=== PATIENT | female | born 1955 | race Caucasian/White ===

== ENCOUNTER 2017-01-11 18:51 | Emergency (ER) | payer BC, OTHER ==
[~2017-01-11] VITALS: Ht 160 cm; Wt 90.1 kg
[~2017-01-11 18:51] MED LIST: ASPI325T45; CITA20TA9 PO; CYAN100020 SL
[2017-01-11 18:56] VITALS: TEMP 36.8; Ht 160 cm; Wt 90.1 kg
[2017-01-11] MEDS ORDERED: SODIUM CHLORIDE 0.9% 1000ML 1,000 ML IV STA (20:16)
[2017-01-11] MEDS ORDERED: ONDANSETRON INJ 2 MG/ML 2 ML VIAL IV STA (20:16)
[2017-01-11 20:25] LABS: BASO % 0.4 %; BASO ABS # 0.03 K/uL (0-0.2); COMPLETE YES; EOS % 2.3 %; HEMATOCRIT 39.2 % (37-47); IG% 0.4 %; LYMPH % 41.9 %; LYMPH ABS # 3.32 K/uL (1.2-3.4); MEAN CELL VOLUME 90.3 fL (80-100); MEAN CORPUSCULAR HEMOGLOBIN 31.3 pg (25-34); MEAN CORPUSCULAR HGB CONC 34.7 g/dl (32-36); MEAN PLATELET VOLUME 10.4 fL (7.4-10.4); MONO % 7.4 %; NEUT % 47.6 %; PLATELET COUNT 253 K/uL (130-400); RED BLOOD COUNT 4.34 M/uL (4.2-5.4); WHITE BLOOD COUNT 7.92 K/uL (4.8-10.8)
[2017-01-11] MEDS ORDERED: NITROGLYCERIN 0.4 MG SL PER TAB CHARGE SL PRN (20:30)
--- NOTE | 2017-01-11 20:39 | DIAGNOSTIC IMAGING REPORT ---
CHEST ONE VIEW PORTABLE CLINICAL HISTORY: Chest pain. COMPARISON STUDY: Chest radiograph February 06, 2013 FINDINGS: Lung volumes are normal. Lungs are clear. There is no pneumothorax or pleural effusion. Cardiac size is normal. Mediastinal contours are normal. There is no evidence of pulmonary edema. IMPRESSION: No acute cardiopulmonary findings. Electronically signed by: Dex Hightower M.D. 01/11/2017 8:38 PM Dictated Date/Time: 01/11/2017 8:38 PM
[2017-01-11 20:42] LABS: ALT/SGPT 45 U/L (12-78); BLOOD UREA NITROGEN 18 mg/dl (7-18); BUN/CREATININE RATIO 18.6 (10-20); CALCIUM 9.4 mg/dl (8.5-10.1); CARBON DIOXIDE 29 mmol/L (21-32); CHLORIDE 104 mmol/L (98-107); CREATININE 0.99 mg/dl (0.60-1.20); GLUCOSE 115 mg/dl (70-99); SODIUM 140 mmol/L (136-145)
[2017-01-11 20:45] LABS: ALKALINE PHOSPHATASE 77 U/L (45-117); AST/SGOT 25 U/L (15-37)
[2017-01-11] MEDS ORDERED: IBUP-1050 PO (20:58)
[2017-01-11 22:00] VITALS: BP 128/71; PULSE 60; O2SAT 93
--- NOTE | 2017-01-12 23:51 | EMERGENCY ROOM VISIT NOTE ---
ED Visit Note First contact with patient: 20:07 Chief Complaint: Chest pain. History of Present Illness: Ms. Morris is a 61 year-old white female who ambulates into the ED accompanied by her complaining of chest pain. Historically patient reports she has no personal history of heart disease or any risk factors. She does report her father had heart disease. Patient reports gradual onset of her symptoms that started 5 days ago. She reports she was at rest and developed a squeezing sensation in the upper sternal area. Since that time her pain has been constant. This was associated with a burning sensation in the epigastric area; she does report that she took Tums and Pepto-Bismol and that pain resolved and never returned and that she had a bitemporal/parietal headache that started at the same time and self resolved after 2 days. Currently she is still complaining of a squeezing pain over the upper sternal area. She rates this discomfort 5/10. The pain is nonradiating. She has not identified any aggravating or alleviating factors related to the pain. She has not taken any additional medications for this discomfort prior to arrival at the hospital. Associated with her discomfort she reports she is nauseated but has not vomited. She denies any associated symptoms including fevers, chills, sweats, skin eruptions, skin color changes, upper respiratory tract symptoms, wheezing, cough shortness of breath, orthopnea, dependent edema, previous clots, claudication, cramping, recent surgery/inactivity/extended travel, diarrhea, constipation, rectal bleeding, black/tarry stools, urinary symptoms, back/flank pain. Review of Systems: As noted above in history of present illness. All body systems were reviewed and found to be negative as noted above. Past Medical History: Depression. Current Medications: Celexa, ibuprofen. Allergies to Medications: Patient denies. Social History: Patient is not employed; she feels safe in her home environment ; she denies tobacco and alcohol use. Physical Examination: Vital Signs: Date Time Temp Pulse Resp B/P Pulse Ox O2 Delivery O2 Flow Rate FiO2 01/11/17 22:00 60 14 128/71 93 Room Air 01/11/17 20:52 70 20 124/69 91 Room Air 01/11/17 20:28 95 Room Air 01/11/17 20:27 62 18 158/116 96 Room Air 01/11/17 20:09 65 01/11/17 18:56 36.8 69 20 192/94 96 Room Air GENERAL: 61-year-old female in mild distress due to pain, nontoxic-appearing, afebrile and hemodynamically stable. NEUROLOGICAL: Awake, alert and oriented to person, place and time. Answering questions appropriately and following commands. Normal gait. Good hand eye coordination. SKIN: Warm, dry and pink. No soft tissue eruptions or trauma noted. HEENT: Atraumatic and normocephalic. PERRLA. Sclera white and conjunctiva pink. Pharynx is nonerythematous or edematous. Speech normal. No lymphadenopathy. Trachea midline. No jugular venous distention. No carotid bruits. BACK: No tenderness over the bony spine. No CVA tenderness. THORAX: Lungs sounds are clear to auscultation and equal bilaterally with symmetrical chest wall. No wheezing, rales or rhonchi. No crepitus, tenderness , subcutaneous air or deformities noted. HEART: Regular rate and rhythm. No gallops, rubs or murmurs are appreciated. No lifts, heaves or thrills. PMI is not displaced. ABDOMEN: Flat, soft and nontender. Positive bowel sounds in all quadrants. No guarding, rigidity or organomegaly. EXTREMITIES: Moves all extremities well on command and with purpose. All distal neurovascular statuses are intact and equal bilaterally. No dependent edema or calf tenderness/cords. ED Course: Patient is assessed as noted above. Laboratory Testing: Test 01/11/17 20:10 01/11/17 20:18 Range/Units White Blood Count 7.92 4.8-10.8 K/uL Red Blood Count 4.34 4.2-5.4 M/uL Hemoglobin 13.6 12.0-16.0 g/dL Hematocrit 39.2 37-47 % Mean Corpuscular Volume 90.3 80-100 fL Mean Corpuscular Hemoglobin 31.3 25-34 pg Mean Corpuscular Hemoglobin Concent 34.7 32-36 g/dl Platelet Count 253 130-400 K/uL Mean Platelet Volume 10.4 7.4-10.4 fL Neutrophils (%) (Auto) 47.6 % Lymphocytes (%) (Auto) 41.9 % Monocytes (%) (Auto) 7.4 % Eosinophils (%) (Auto) 2.3 % Basophils (%) (Auto) 0.4 % Neutrophils # (Auto) 3.77 1.4-6.5 K/uL Lymphocytes # (Auto) 3.32 1.2-3.4 K/uL Monocytes # (Auto) 0.59 0.11-0.59 K/uL Eosinophils # (Auto) 0.18 0-0.5 K/uL Basophils # (Auto) 0.03 0-0.2 K/uL RDW Standard Deviation 40.8 36.4-46.3 fL RDW Coefficient of Variation 12.3 11.5-14.5 % Immature Granulocyte % (Auto) 0.4 % Immature Granulocyte # (Auto) 0.03 0.00-0.02 K/uL D-Dimer 300 0-500 ug/L FEU Sodium Level 140 136-145 mmol/L Potassium Level 4.0 3.5-5.1 mmol/L Chloride Level 104 98-107 mmol/L Carbon Dioxide Level 29 21-32 mmol/L Anion Gap 7.0 3-11 mmol/L Blood Urea Nitrogen 18 7-18 mg/dl Creatinine 0.99 0.60-1.20 mg/dl Est Creatinine Clear Calc Drug Dose 62.8 ml/min Estimated GFR () 70.8 Estimated GFR (Non- 61.1 BUN/Creatinine Ratio 18.6 10-20 Random Glucose 115 70-99 mg/dl Calcium Level 9.4 8.5-10.1 mg/dl Total Bilirubin 0.3 0.2-1 mg/dl Direct Bilirubin < 0.1 0-0.2 mg/dl Aspartate Amino Transf (AST/SGOT) 25 15-37 U/L Alanine Aminotransferase (ALT/SGPT) 45 12-78 U/L Alkaline Phosphatase 77 45-117 U/L Total Protein 8.0 6.4-8.2 gm/dl Albumin 4.1 3.4-5.0 gm/dl Lipase 268 73-393 U/L Bedside Troponin I 0.000 0-0.045 ng/ml Chest X-Ray: Was read by myself and the radiologist and shows no acute infiltrates, effusions or pneumothorax. Normal heart silhouette and bony anatomy. EKG: Was read by myself and reviewed with Dr. Graham; shows normal sinus rhythm with a ventricular rate of 64 bpm. Normal axis, intervals and complexes. No acute ST changes indicating ischemia, injury or infarction. This was compared to previous from February 2013 and no acute changes were noted. Patient was hydrated with normal saline and she received 4 mg of Zofran IV for nausea and 2 0.4 sublingual nitroglycerin tablet for pain. Patient was reassessed multiple times during her stay in the emergency department and after approximately 30 minutes from her last nitroglycerin she reported she was feeling better and rated her discomfort 1/10. Patient's case was reviewed with Dr. Barlow; we agreed on diagnostic approach, treatment, disposition and plan. Patient was educated about tonadore's findings and instructed on her treatment plan; she verbalizes understanding and agreement with this plan. Clinical Impression: Chest pain. Decision-Making: Initially my differential diagnosis I considered acute coronary syndrome, thoracic aneurysm, pneumothorax, gastric reflux, hepatitis, pancreatitis, pneumonia and other causes. Disposition: Patient discharged home in stable condition accompanied by her ; prior to departure she was reassessed and subjectively reported she was feeling much better and rated her discomfort 1/10. Plan: Patient was encouraged to use 650 mg of acetaminophen every 6 hours as needed for pain and to avoid NSAID use. Patient was encouraged to contact her family physician for follow-up care and treatment and possible referral to cardiology or gastroenterology. Patient was encouraged return ED for worsening symptoms, fevers, shortness of breath or any new/concerning symptoms.
== END 2017-01-11 22:18 | disposition home or self-care (01) ==
LOC: C.EDB 18:52 → C.EDC 22:18
DX: R07.9 Chest pain, unspecified (principal); R11.0 Nausea; F32.9 Major depressive disorder, single episode, unspecified

== ENCOUNTER → 2017-02-14 | Outpatient (CLI) | payer OTHER ==
[~2017-02-14] MED LIST changes: -ASPI325T45; -CYAN100020 SL; +IBUP-1050 PO
--- NOTE | 2017-02-14 11:50 | EXERCISE STRESS ECHO ---
*NOTICE TO RECEIVING LIBERTARIAN AGENCY This information is strictly Confidential and protected under [place] law. [place] law prohibits you from making any further disclosure of this information unless further disclosure is expressly permitted by the written consent of the person to whom it pertains or is authorized by law. A general authorization for the release of medical or other information is not sufficient for this purpose. Hospital accepts no responsibility if the information is made available to any other person, INCLUDING THE PATIENT. Interpretation Summary * Name: JOSLYN VEGA Study Date: 02/14/2017 09:31 AM BP: 140/80 mmHg * Patient Location: [facility] HR: 55 * : 1955 (M/d/yyyy) Gender: Female Height: 63 in * Age: 61 yrs Ethnicity: [place] Weight: 191 lb * Ordering Physician: Kylee Acosta * Referring Physician: Kylee Acosta * Performed By: Cathyrn Proctor RDCS * * Reason For Study: CHEST PAIN, STRONG FAMILY HX * BSA: 1.9 m2 * -- Conclusions -- * There is borderline concentric left ventricular hypertrophy. * Left ventricular systolic function is normal. * Right ventricular systolic pressure is normal. * Normal maximal exercise echocardioggram without symptoms or evidence of inducible ischemia. * Hypertensive response to exercise. Procedure Details * ECHOEX, CPT #10736 Left Ventricular Findings with Stress * Normal maximal exercise echocardioggram without symptoms or evidence of inducible ischemia. Hypertensive response to exercise. Left Ventricle * The left ventricle is normal in size. * There is borderline concentric left ventricular hypertrophy. * Ejection Fraction = 60-65%. * Left ventricular systolic function is normal. Right Ventricle * The right ventricle is grossly normal size. Atria * The left atrial size is normal. * Right atrial size is normal. Mitral Valve * The mitral valve is grossly normal. * There is trace mitral regurgitation. Tricuspid Valve * The tricuspid valve is not well visualized, but is grossly normal. * There is trace tricuspid regurgitation. * Right ventricular systolic pressure is normal. Aortic Valve * The aortic valve is normal in structure and function. * No hemodynamically significant valvular aortic stenosis. * There is no significant aortic regurgitation. Great Vessels * The aortic root is normal size. Pericardium * There is no pericardial effusion. Stress Parameters * Normal baseline electrocardiogram. * Stress ECG: No ST changes. No arrhythmias. * The stress portion of this study was personally supervised by the undersigned interpreting physician. * Rest heart rate was '55' BPM. * Rest blood pressure was '140/80' * Maximum heart rate achieved was 151 bpm. * Maximum heart rate was 95 % of maximum age-predicted heart rate. * Maximum blood pressure was '217/82' * Total exercise time was '9:00' * Maximum exercise MET level achieved was '10.10' METS * Maximum treadmill speed was '3.40' miles per hour. * Maximum treadmill elevation was '14.00'% grade. * Exercise was terminated due to 'ACHIEVING TARGET HR' Left Ventricular Findings with Stress * Normal baseline EKG without evidence of ischemia during exercise Normal baseline echocardiogram with normal augmentation and no inducible wall motion abnormalities. No symptoms Hypertensive BP response to exercise. Hayes treadmill score: 9 (low risk) MMode 2D Measurements and Calculations IVSd 1.2 cm IVSs 1.5 cm LVIDd 4.4 cm LVIDs 2.9 cm LVPWd 1.2 cm LVPWs 1.8 cm IVS/LVPW 0.96 FS 34.0 % EDV(Teich) 89.0 ml ESV(Teich) 32.8 ml EF(Teich) 63.2 % EDV(cubed) 86.8 ml ESV(cubed) 24.9 ml EF(cubed) 71.3 % % IVS thick 27.0 % % LVPW thick 45.3 % LV mass(C)d 193.6 grams LV mass(C)dI 102.1 grams/m\S\2 LV mass(C)s 177.8 grams LV mass(C)sI 93.8 grams/m\S\2 SV(Teich) 56.2 ml SI(Teich) 29.6 ml/m\S\2 SV(cubed) 61.9 ml SI(cubed) 32.6 ml/m\S\2 Ao root diam 3.0 cm Ao root area 7.0 cm\S\2 LA dimension 3.3 cm LA/Ao 1.1 LVAd ap4 31.1 cm\S\2 LVLd ap4 8.4 cm EDV(MOD-sp4) 97.1 ml EDV(sp4-el) 97.6 ml LVAs ap4 16.1 cm\S\2 LVLs ap4 6.6 cm ESV(MOD-sp4) 33.5 ml ESV(sp4-el) 33.0 ml EF(MOD-sp4) 65.5 % EF(sp4-el) 66.2 % LVAd ap2 28.2 cm\S\2 LVLd ap2 8.0 cm EDV(MOD-sp2) 87.0 ml EDV(sp2-el) 83.8 ml LVAs ap2 14.8 cm\S\2 LVLs ap2 6.8 cm ESV(MOD-sp2) 29.2 ml ESV(sp2-el) 27.3 ml EF(MOD-sp2) 66.4 % EF(sp2-el) 67.4 % LVLd %diff -4.93 % EDV(MOD-bp) 93.8 ml LVLs %diff 3.2 % ESV(MOD-bp) 32.1 ml EF(MOD-bp) 65.8 % SV(MOD-sp4) 63.6 ml SI(MOD-sp4) 33.5 ml/m\S\2 SV(MOD-sp2) 57.7 ml SI(MOD-sp2) 30.5 ml/m\S\2 SV(MOD-bp) 61.7 ml SI(MOD-bp) 32.5 ml/m\S\2 SV(sp4-el) 64.6 ml SI(sp4-el) 34.1 ml/m\S\2 SV(sp2-el) 56.5 ml SI(sp2-el) 29.8 ml/m\S\2 Doppler Measurements and Calculations MV E max ramos 60.4 cm/sec MV A max ramos 71.3 cm/sec MV E/A 0.85 MV dec time 0.26 sec Ao V2 max 134.9 cm/sec Ao max PG 7.3 mmHg Ao max PG (full) 2.9 mmHg LV V1 max PG 4.4 mmHg LV V1 max 104.4 cm/sec TR max ramos 221.0 cm/sec
== END | disposition home or self-care (01) ==
LOC: C.CPL 09:16
PROVIDERS: ATTEND Family Medicine
DX: R07.9 Chest pain, unspecified (principal)

== ENCOUNTER → 2017-02-21 | Outpatient (CLI) | payer OTHER ==
--- NOTE | 2017-02-21 16:18 | MAMMOGRAPHY REPORT ---
BILATERAL DIGITAL SCREENING MAMMOGRAM WITH CAD: 02/21/2017 CLINICAL HISTORY: Routine screening examination. TECHNIQUE: Bilateral CC, MLO and repeat right MLO views were obtained. Current study was also evalu ated with a Computer Aided Detection (CAD) system. COMPARISON: Comparison is made to exams dated: 12/26/2013 mammogram, 11/08/2012 mammogram, 01/01/2015 mammogram, and 10/27/2011 mammogram - [facility] [place] Consuelo Shaw. BREAST COMPOSITION: There are scattered areas of fibroglandular density in both breasts. FINDINGS: There are stable intramammary lymph nodes in the upper outer quadrant of the right breast. No suspicious mass, architectural distortion or cluster of new, suspicious microcalcifications is seen. IMPRESSION: ACR BI-RADS CATEGORY 1: NEGATIVE There is no mammographic evidence of malignancy. A 1 year screening mammogram is recommended. The p atient will receive written notification of the results. Approximately 10% of breast cancers are not detected with mammography. A negative mammographic repor t should not delay biopsy if a clinically suggestive mass is present. Qiana Henry M.D. ay/:02/21/2017 15:58:43 [employer] Operator: Sandra THOMPSON(Kacey)(Darryl), [facility] letter sent: Normal 1/2 BI-RADS Code: ACR BI-RADS Category 1: Negative
== END | disposition home or self-care (01) ==
LOC: C.MAMM 10:46
PROVIDERS: ATTEND Family Medicine
DX: Z12.31 Encounter for screening mammogram for malignant neoplasm of breast (principal)